=== PATIENT | female | born 1995 | race Two or more races ===

== ENCOUNTER 2020-01-11 12:26 | Emergency (ER) | payer MEDICAID ==
[~2020-01-11] VITALS: Ht 162.6 cm; Wt 111.1 kg
[2020-01-11 14:45] VITALS: BP 154/97
== END 2020-01-11 15:02 | disposition home or self-care (01) ==
LOC: ER 12:26
DX: U07.1 COVID-19 (principal); J06.9 Acute upper respiratory infection, unspecified
CPT/HCPCS: 71045; 87635

== ENCOUNTER 2020-01-18 11:28 | Emergency (ER) | payer MEDICAID ==
[~2020-01-18] VITALS: Ht 162.6 cm; Wt 111.1 kg
[2020-01-18 11:41] VITALS: BP 131/82
== END 2020-01-18 13:45 | disposition home or self-care (01) ==
LOC: ER 11:28
DX: U07.1 COVID-19 (principal); B34.9 Viral infection, unspecified; F41.9 Anxiety disorder, unspecified
CPT/HCPCS: 71045